=== PATIENT | female | born 1995 | race Two or more races ===

== ENCOUNTER 2022-03-04 18:57 | Emergency (ER) | payer SELFPAY ==
[2022-03-04] MEDS ORDERED: Sodium Chloride 0.9% 1,000 ML IV ONE (19:54)
[2022-03-04] MEDS ORDERED: Ondansetron 4 MG/2 ML SDV IVPUSH ONE (19:54)
[2022-03-04] MEDS ORDERED: Morphine 4 MG/ML Syringe IVPUSH ONE (20:22)
[2022-03-04 20:36] LABS: POTASSIUM,K 3.7 mmol/L (3.5-5.1)
[2022-03-04 21:03] LABS: CORONAVIRUS COVID-19 NAA POSITIVE (NEGATIVE); INFLUENZA A NAA NEGATIVE (NEGATIVE); INFLUENZA B NAA NEGATIVE (NEGATIVE); RESPIRATORY SYNCYTIAL VIR NAA NEGATIVE (NEGATIVE)
== END 2022-03-04 22:15 | disposition home or self-care (01) ==
LOC: MW.ED 18:57
DX: U07.1 COVID-19 (principal); Z88.0 Allergy status to penicillin; Z88.2 Allergy status to sulfonamides
CPT/HCPCS: 0241U; 36415; 80053; 81003; 81025; 83690; 85025; 96361; 96374; 96375; 99284; J2270; J2405; J7030